=== PATIENT | female | born 1975 ===

== ENCOUNTER 2016-12-03 16:00 | Outpatient (RCR) | payer OTHER | END 2016-12-13 | disposition home or self-care (01) | LOC: PTY 16:00 | DX: S16.1XXA Strain of muscle, fascia and tendon at neck level, initial encounter (principal); X58.XXXA Exposure to other specified factors, initial encounter; Y93.9 Activity, unspecified; Y92.9 Unspecified place or not applicable | CPT/HCPCS: 97110; 97140; 97162; G0283 ==

== ENCOUNTER 2016-12-24 16:11 | Outpatient (RCR) | payer OTHER | END 2017-01-13 | disposition home or self-care (01) | LOC: PTY 16:11 | DX: M54.2 Cervicalgia (principal); S16.1XXD Strain of muscle, fascia and tendon at neck level, subsequent encounter | CPT/HCPCS: 97110; 97140; G0283 ==

== ENCOUNTER 2017-02-05 16:00 | Outpatient (RCR) | payer OTHER | END 2017-02-13 | disposition home or self-care (01) | LOC: PTY 16:00 | DX: S16.1XXD Strain of muscle, fascia and tendon at neck level, subsequent encounter (principal); M54.2 Cervicalgia | CPT/HCPCS: 97110; 97140; G0283 ==

== ENCOUNTER 2017-03-04 16:00 | Outpatient (RCR) | payer OTHER | END 2017-03-15 | disposition home or self-care (01) | LOC: PTY 16:00 | DX: S16.1XXA Strain of muscle, fascia and tendon at neck level, initial encounter (principal); M54.2 Cervicalgia; S16.1XXD Strain of muscle, fascia and tendon at neck level, subsequent encounter; X58.XXXA Exposure to other specified factors, initial encounter; Y93.9 Activity, unspecified; Y92.9 Unspecified place or not applicable | CPT/HCPCS: 97110; 97140; G0283 ==

== ENCOUNTER 2017-04-03 16:00 | Outpatient (RCR) | payer OTHER | END 2017-04-15 | disposition home or self-care (01) | LOC: PTY 16:00 | DX: S16.1XXA Strain of muscle, fascia and tendon at neck level, initial encounter (principal); M54.2 Cervicalgia | CPT/HCPCS: 97110; 97140; G0283 ==

== ENCOUNTER 2017-06-12 14:30 | Outpatient (RCR) | payer OTHER | END 2017-06-15 | disposition home or self-care (01) | LOC: PTY 14:30 | DX: S16.1XXD Strain of muscle, fascia and tendon at neck level, subsequent encounter (principal); M54.2 Cervicalgia | CPT/HCPCS: 97110; 97140; G0283 ==